=== PATIENT | male | born 1995 | race Caucasian/White ===

== ENCOUNTER 2016-11-11 16:32 | Emergency (ER) | payer SELFPAY ==
[~2016-11-11] VITALS: Ht 167.6 cm; Wt 66.2 kg
[2016-11-11 18:29] VITALS: BP 122/81
== END 2016-11-11 18:29 | disposition home or self-care (01) ==
LOC: ED 16:32
DX: S82.52XA Displaced fracture of medial malleolus of left tibia, initial encounter for closed fracture (principal); X58.XXXA Exposure to other specified factors, initial encounter; Y93.67 Activity, basketball; Y92.89 Other specified places as the place of occurrence of the external cause; Y99.8 Other external cause status

== ENCOUNTER 2017-09-27 16:14 | Emergency (ER) | payer OTHER ==
[~2017-09-27] VITALS: Ht 167.6 cm; Wt 68.9 kg
[2017-09-27 16:17] VITALS: Ht 167.6 cm; Wt 68.9 kg
[2017-09-27 19:55] LABS: BASOPHIL % 0.8 % (0-2); PLATELET COUNT 225 x10^3mcL (130-400); RED CELL DISTRIBUTION WIDTH 12.3 % (11.5-14.5)
[2017-09-27 20:21] LABS: CALCIUM 9.4 mg/dL (8.5-10.1); CARBON DIOXIDE 28.5 mmol/L (21-32); CHLORIDE SERUM 99 mmol/L (98-107); CREATININE SERUM 0.9 mg/dL (0.7-1.3); GFR1 > 60 mL/min; GLUCOSE SERUM 89 mg/dL (74-106); POTASSIUM SERUM 3.7 mmol/L (3.5-5.1); SODIUM SERUM 139 mmol/L (136-145)
[2017-09-27 20:25] LABS: ALBUMIN 4.8 g/dL (3.4-5.0); ALKALINE PHOSPHATASE 71 U/L (46-116); ALT/SGPT 99 U/L (16-63); AST/SGOT 41 U/L (15-37); BILIRUBIN TOTAL 1.35 mg/dL (0.20-1.00); LIPASE 115 IU/L (73-393)
[2017-09-27 20:26] LABS: TOTAL PROTEIN, SERUM 8.5 g/dL (6.4-8.2)
[2017-09-27 21:14] VITALS: BP 142/86
== END 2017-09-27 21:14 | disposition home or self-care (01) ==
LOC: ED 16:14
PROVIDERS: Emergency Medicine
DX: R10.2 Pelvic and perineal pain (principal); I10 Essential (primary) hypertension
CPT/HCPCS: 36415; 87491; 87591; J1885

== ENCOUNTER 2018-06-27 19:30 | Emergency (ER) | payer OTHER ==
[~2018-06-27] VITALS: Ht 167.6 cm; Wt 71.8 kg
[2018-06-27 20:06] VITALS: Ht 167.6 cm; Wt 71.8 kg
[2018-06-27 23:55] VITALS: BP 135/84
== END 2018-06-27 23:45 | disposition home or self-care (01) ==
LOC: ED 19:30
DX: S16.1XXA Strain of muscle, fascia and tendon at neck level, initial encounter (principal); V49.88XA Car occupant (driver) (passenger) injured in other specified transport accidents, initial encounter; Y93.89 Activity, other specified; Y92.89 Other specified places as the place of occurrence of the external cause; Y99.8 Other external cause status
CPT/HCPCS: J1885